=== PATIENT | female | born 1980 | race Caucasian/White ===

== ENCOUNTER 2017-01-17 17:24 | Emergency (ER) | payer MEDICAID ==
[~2017-01-17] VITALS: Ht 175.3 cm; Wt 90.9 kg
[2017-01-17 17:26] VITALS: BP 131/93; PULSE 115; TEMP 99.9
[2017-01-17] MEDS ORDERED: NEURONTIN300 MG/CAP PO (17:32)
[2017-01-17] MEDS ORDERED: PERCOCET 325 MG1 TA2 PO (18:09)
[2017-01-17] MEDS ORDERED: BACTRIM DS 8001 TAB PO (18:23)
== END 2017-01-17 18:34 | disposition home or self-care (01) ==
LOC: COL.ER 17:24
DX: K61.1 Rectal abscess (principal)

== ENCOUNTER 2017-07-09 16:58 | Emergency (ER) | payer MEDICAID ==
[~2017-07-09] VITALS: Ht 175.3 cm; Wt 99.1 kg
[~2017-07-09 16:58] MED LIST: BACTRIM DS 8001 TAB PO; NEURONTIN300 MG/CAP PO; PERCOCET 325 MG1 TA2 PO
[2017-07-09 17:05] VITALS: BP 129/77; PULSE 79; TEMP 99
== END 2017-07-09 18:42 | disposition home or self-care (01) ==
LOC: COL.ER 16:58
DX: T14.91 Suicide attempt (principal); F32.9 Major depressive disorder, single episode, unspecified; F17.210 Nicotine dependence, cigarettes, uncomplicated

== ENCOUNTER → 2017-08-15 | Outpatient (CLI) | payer MEDICAID | LOC: MC.RAD 14:00 | DX: Z12.31 Encounter for screening mammogram for malignant neoplasm of breast (principal) ==

== ENCOUNTER 2018-01-09 19:56 | Emergency (ER) | payer MEDICAID ==
[~2018-01-09] VITALS: Ht 175.3 cm; Wt 86.4 kg
[2018-01-09 20:09] VITALS: BP 135/63; TEMP 98.7
[2018-01-09 20:29] LABS: COLLECTION METHOD CLEAN CATCH
[2018-01-09 20:56] LABS: PH 7 (5-8); SQUAMOUS EPITHELIAL 0-2 /hpf; URINE APPEARANCE Clear; URINE BACTERIA None Seen /hpf; URINE BILIRUBIN Negative (NEGATIVE); URINE BLOOD Negative (NEGATIVE); URINE COLOR Yellow; URINE GLUCOSE Negative (NEGATIVE); URINE KETONE Negative (NEGATIVE); URINE LEUKOCYTE ESTERASE Negative (NEGATIVE); URINE NITRATE Negative (NEGATIVE); URINE PROTEIN(semi-quant) Negative (NEGATIVE); URINE RBC 0-2 /hpf; URINE UROBILINOGEN Negative (NEGATIVE)
[2018-01-09 21:13] LABS: BASO # 0.1 (0.0-0.2); BASO % 0.9 % (0.0-2.0); EOS # 0.3 (0.0-0.7); EOS % 4.9 % (0-4.0); GRAN # 4.1 (1.4-6.5); GRAN % 69.5 % (42.2-75.2); LYMPH # 1.1 (1.2-3.4); LYMPH % 19.3 % (20.0-51.0); MEAN CELL VOLUME 84 fl (80.0-100.0); MEAN CORPUSCULAR HGB CONC 33 g/dl (33.0-37.0); MEAN PLATELET VOLUME 8.9 fl (7.4-10.4); MONO # 0.3 (0.1-0.6); MONO % 5.1 % (1.7-9.3); PLATELET COUNT 299 K/mm3 (130-400); REDCELL DISTRIBUTION WIDTH-CV 17.2 % (11.5-14.5)
[2018-01-09 21:16] LABS: HEMATOCRIT 33.5 % (37.0-47.0); HEMOGLOBIN 10.9 g/dl (12.5-16.0); MEAN CORPUSCULAR HEMOGLOBIN 27 pg (27.0-31.0)
[2018-01-09 21:21] LABS: ALANINE AMINOTRANSFERASE 29 U/L (9-52); ALKALINE PHOSPHATASE 53 U/L (50-136); ANION GAP 6 mmol/L (7-16); AST,SGOT 25 U/L (15-37); BILIRUBIN,TOTAL < 0.1 mg/dL (0.0-1.0); BLOOD UREA NITROGEN 7 mg/dL (7-17); CALCIUM 8.9 mg/dL (8.4-10.2); CARBON DIOXIDE 24 mmol/L (22-30); CHLORIDE 107 mmol/L (98-107); CREATININE, serum 0.65 mg/dL (0.52-1.25); GLUCOSE 105 mg/dL (74-106); POTASSIUM 3.9 mmol/L (3.4-5.0); SODIUM 138 mmol/L (137-145); TOTAL PROTEIN 6.6 gm/dL (6.4-8.2)
[2018-01-09 21:22] LABS: C-REACTIVE PROTEIN < 0.5 mg/dL (0.0-0.9)
[2018-01-09 21:54] VITALS: PULSE 74
== END 2018-01-09 21:55 | disposition home or self-care (01) ==
LOC: COL.ER 19:56
PROVIDERS: Nurse Practitioner
DX: J06.9 Acute upper respiratory infection, unspecified (principal); R10.13 Epigastric pain; G43.909 Migraine, unspecified, not intractable, without status migrainosus; F41.9 Anxiety disorder, unspecified; F12.90 Cannabis use, unspecified, uncomplicated; F17.210 Nicotine dependence, cigarettes, uncomplicated; Z88.6 Allergy status to analgesic agent; Z88.8 Allergy status to other drugs, medicaments and biological substances; Z98.51 Tubal ligation status

== ENCOUNTER 2018-02-03 21:51 | Emergency (ER) | payer MEDICAID ==
[~2018-02-03] VITALS: Ht 175.3 cm; Wt 86.4 kg
[2018-02-03 21:54] VITALS: TEMP 97.8
[2018-02-03] MEDS ORDERED: CEPHALEXIN500 M1 PO (22:19)
[2018-02-03 22:30] VITALS: BP 134/75; PULSE 89
== END 2018-02-03 22:31 | disposition home or self-care (01) ==
LOC: COL.ER 21:51
DX: L02.31 Cutaneous abscess of buttock (principal); G43.909 Migraine, unspecified, not intractable, without status migrainosus; F41.9 Anxiety disorder, unspecified; F17.210 Nicotine dependence, cigarettes, uncomplicated; F12.90 Cannabis use, unspecified, uncomplicated; Z98.51 Tubal ligation status

== ENCOUNTER 2018-02-04 20:38 | Emergency (ER) | payer MEDICAID ==
[~2018-02-04] VITALS: Ht 175.3 cm; Wt 83.2 kg
[~2018-02-04 20:38] MED LIST changes: +CEPHALEXIN500 M1 PO
[2018-02-04 20:40] VITALS: BP 150/69; PULSE 80; TEMP 98.5
[2018-02-05] MEDS ORDERED: NORCO 325 MG-51 TAB PO (15:01)
== END 2018-02-04 22:15 | disposition left against medical advice (07) ==
LOC: COL.ER 20:38
DX: L72.8 Other follicular cysts of the skin and subcutaneous tissue (principal)

== ENCOUNTER 2018-02-05 14:21 | Emergency (ER) | payer MEDICAID ==
[~2018-02-05] VITALS: Ht 175.3 cm; Wt 86.4 kg
[2018-02-05 14:30] VITALS: TEMP 99.1
[2018-02-05] MEDS ORDERED: NORCO 325 MG-51 TAB PO (15:01)
[2018-02-05 15:53] VITALS: BP 121/79; PULSE 82
== END 2018-02-05 16:04 | disposition home or self-care (01) ==
LOC: COL.ER 14:21
DX: L05.01 Pilonidal cyst with abscess (principal); F17.210 Nicotine dependence, cigarettes, uncomplicated

== ENCOUNTER 2019-04-24 23:13 | Emergency (ER) | payer MEDICAID ==
[~2019-04-24] VITALS: Ht 175.3 cm; Wt 90.0 kg
[~2019-04-24 23:13] MED LIST changes: +NORCO 325 MG-51 TAB PO
[2019-04-24 23:22] VITALS: TEMP 98.2
[2019-04-24 23:54] LABS: BASO % 0.7 % (0.0-2.0); EOS # 0.3 (0.0-0.7); EOS % 5.5 % (0-4.0); GRAN # 2.9 (1.4-6.5); GRAN % 53.6 % (42.2-75.2); HEMOGLOBIN 11.2 g/dl (12.5-16.0); LYMPH # 1.9 (1.2-3.4); LYMPH % 34.7 % (20.0-51.0); MEAN CELL VOLUME 85 fl (80.0-100.0); MEAN CORPUSCULAR HEMOGLOBIN 28 pg (27.0-31.0); MEAN CORPUSCULAR HGB CONC 32 g/dl (33.0-37.0); MEAN PLATELET VOLUME 8.7 fl (7.4-10.4); MONO # 0.3 (0.1-0.6); MONO % 5.3 % (1.7-9.3); PLATELET COUNT 294 K/mm3 (130-400); RED BLOOD COUNT 4.06 M/mm3 (4.10-5.30); REDCELL DISTRIBUTION WIDTH-CV 15.8 % (11.5-14.5)
[2019-04-24 23:55] LABS: HEMATOCRIT 34.6 % (37.0-47.0)
[2019-04-25 00:03] LABS: ALANINE AMINOTRANSFERASE 9 U/L (9-52); ALBUMIN 3.5 gm/dL (3.5-5.0); ALKALINE PHOSPHATASE 56 U/L (50-136); ANION GAP 7 mmol/L (7-16); AST,SGOT 26 U/L (15-37); BILIRUBIN,TOTAL 0.1 mg/dL (0.0-1.0); BLOOD UREA NITROGEN 7 mg/dL (7-17); CALCIUM 8.6 mg/dL (8.4-10.2); CARBON DIOXIDE 26 mmol/L (22-30); CHLORIDE 107 mmol/L (98-107); CREATININE, serum 0.65 (0.52-1.25); GLUCOSE 96 mg/dL (74-106); POTASSIUM 3.8 mmol/L (3.4-5.0); SODIUM 140 mmol/L (137-145)
[2019-04-25 00:04] LABS: ACETAMINOPHEN < 10 ug/mL (10-30); ALCOHOL(ethanol),MEDICAL < 10 mg/dL; SALICYLATE < 1.0 mg/dL; TOTAL PROTEIN 6.4 gm/dL (6.4-8.2)
[2019-04-25 02:44] LABS: COLLECTION METHOD CLEAN CATCH
[2019-04-25 02:49] LABS: MUCOUS Present /lpf; PH 6 (5-8); SQUAMOUS EPITHELIAL 0-2 /hpf; URINE APPEARANCE Clear; URINE BACTERIA None Seen /hpf; URINE BILIRUBIN Negative (NEGATIVE); URINE BLOOD 1+ (NEGATIVE); URINE COLOR Yellow; URINE GLUCOSE Negative (NEGATIVE); URINE KETONE Negative (NEGATIVE); URINE LEUKOCYTE ESTERASE Negative (NEGATIVE); URINE NITRATE Negative (NEGATIVE); URINE PROTEIN(semi-quant) Negative (NEGATIVE); URINE RBC 0-2 /hpf; URINE UROBILINOGEN Negative (NEGATIVE)
[2019-04-25 03:03] LABS: TRICYCLIC ANTIDEPRESS URINE NEGATIVE
[2019-04-26 15:37] VITALS: BP 130/80; PULSE 83
== END 2019-04-26 15:44 | disposition home or self-care (01) ==
LOC: COL.ER 23:13
PROVIDERS: Emergency Medicine
DX: T42.8X2A Poisoning by antiparkinsonism drugs and other central muscle-tone depressants, intentional self-harm, initial encounter (principal); Z98.51 Tubal ligation status; F12.90 Cannabis use, unspecified, uncomplicated

== ENCOUNTER 2019-12-28 09:28 | Emergency (ER) | payer SELFPAY ==
[~2019-12-28] VITALS: Ht 175.3 cm; Wt 86.4 kg
[2019-12-28 09:31] VITALS: BP 152/70; PULSE 71; TEMP 99.5
[2019-12-28] MEDS ORDERED: PEN-VEE K500 MG PO (09:59)
[2019-12-28] MEDS ORDERED: NORCO 325 MG-51 TAB PO (09:59)
== END 2019-12-28 10:07 | disposition home or self-care (01) ==
LOC: COL.ER 09:28
DX: K04.7 Periapical abscess without sinus (principal); F41.9 Anxiety disorder, unspecified; F17.210 Nicotine dependence, cigarettes, uncomplicated; G43.909 Migraine, unspecified, not intractable, without status migrainosus; Z98.51 Tubal ligation status; Z88.5 Allergy status to narcotic agent

== ENCOUNTER 2020-06-07 16:47 | Emergency (ER) | payer SELFPAY ==
[~2020-06-07] VITALS: Ht 175.3 cm; Wt 90.7 kg
[~2020-06-07 16:47] MED LIST changes: +PEN-VEE K500 MG PO
[2020-06-07 16:50] VITALS: TEMP 97.7
[2020-06-07 17:02] LABS: COLLECTION METHOD CLEAN CATCH
[2020-06-07 17:08] LABS: PH 5 (5-8); SQUAMOUS EPITHELIAL 0-2 /hpf; URINE APPEARANCE Clear; URINE BACTERIA None Seen /hpf; URINE BILIRUBIN Negative (NEGATIVE); URINE BLOOD Negative (NEGATIVE); URINE COLOR Straw; URINE GLUCOSE Negative (NEGATIVE); URINE KETONE Negative (NEGATIVE); URINE LEUKOCYTE ESTERASE Negative (NEGATIVE); URINE NITRATE Negative (NEGATIVE); URINE PROTEIN(semi-quant) Negative (NEGATIVE); URINE RBC 0-2 /hpf; URINE UROBILINOGEN Negative (NEGATIVE)
[2020-06-07 17:25] LABS: TRICYCLIC ANTIDEPRESS URINE NEGATIVE
[2020-06-07 18:46] LABS: BASO # 0.1 (0.0-0.2); BASO % 0.8 % (0.0-2.0); EOS # 0.1 (0.0-0.7); GRAN # 4.5 (1.4-6.5); GRAN % 69.4 % (42.2-75.2); HEMATOCRIT 37.4 % (37.0-47.0); HEMOGLOBIN 11.6 g/dl (12.5-16.0); LYMPH # 1.3 (1.2-3.4); LYMPH % 20.1 % (20.0-51.0); MEAN CELL VOLUME 79 fl (80.0-100.0); MEAN CORPUSCULAR HEMOGLOBIN 25 pg (27.0-31.0); MEAN CORPUSCULAR HGB CONC 31 g/dl (33.0-37.0); MEAN PLATELET VOLUME 8.8 fl (7.4-10.4); MONO # 0.5 (0.1-0.6); MONO % 7.4 % (1.7-9.3); PLATELET COUNT 382 K/mm3 (130-400); RED BLOOD COUNT 4.73 M/mm3 (4.10-5.30); REDCELL DISTRIBUTION WIDTH-CV 18.7 % (11.5-14.5)
[2020-06-07 19:03] LABS: ALANINE AMINOTRANSFERASE 12 U/L (4-34); ALBUMIN 4.5 gm/dL (3.5-5.0); ALCOHOL(ethanol),MEDICAL 139 mg/dL; ALKALINE PHOSPHATASE 75 U/L (50-136); ANION GAP 8 mmol/L (7-16); AST,SGOT 23 U/L (15-37); BILIRUBIN,TOTAL 0.4 mg/dL (0.0-1.0); BLOOD UREA NITROGEN 4 mg/dL (7-17); CALCIUM 9.3 mg/dL (8.4-10.2); CARBON DIOXIDE 26 mmol/L (22-30); CHLORIDE 107 mmol/L (98-107); CREATININE, serum 0.73 (0.52-1.25); GLUCOSE 94 mg/dL (74-106); POTASSIUM 4.1 mmol/L (3.4-5.0); SODIUM 141 mmol/L (137-145); TOTAL PROTEIN 7.7 gm/dL (6.4-8.2)
[2020-06-07 19:04] LABS: ACETAMINOPHEN < 10 ug/mL (10-30); SALICYLATE < 1.0 mg/dL
[2020-06-07 22:39] VITALS: BP 112/81; PULSE 77
== END 2020-06-07 22:52 | disposition home or self-care (01) ==
LOC: COL.ER 16:47
PROVIDERS: Physician Assistant
DX: S61.511A Laceration without foreign body of right wrist, initial encounter (principal); F41.9 Anxiety disorder, unspecified; F32.9 Major depressive disorder, single episode, unspecified; G43.909 Migraine, unspecified, not intractable, without status migrainosus; F17.210 Nicotine dependence, cigarettes, uncomplicated; Z23 Encounter for immunization; Z91.14 Patient's other noncompliance with medication regimen; Z91.5 Personal history of self-harm; Z88.6 Allergy status to analgesic agent; X78.1XXA Intentional self-harm by knife, initial encounter

== ENCOUNTER 2020-10-25 17:33 | Emergency (ER) | payer SELFPAY ==
[~2020-10-25] VITALS: Ht 175.3 cm; Wt 93.2 kg
[~2020-10-25 17:33] MED LIST changes: +AMOXICILLIN 8751 TAB PO; +LIDODERM 5% PATC1 EA TP; +MEDROL 4MG DOSPA4 MG PO; +NEURONTIN100 MG/CAP PO
[2020-10-25 17:50] VITALS: BP 129/79; TEMP 98.2
[2020-10-25 18:23] VITALS: PULSE 85
== END 2020-10-25 18:23 | disposition home or self-care (01) ==
LOC: COL.ER 17:33
DX: S00.93XA Contusion of unspecified part of head, initial encounter (principal); Z88.5 Allergy status to narcotic agent; Z88.6 Allergy status to analgesic agent; W22.8XXA Striking against or struck by other objects, initial encounter; Y92.002 Bathroom of unspecified non-institutional (private) residence as the place of occurrence of the external cause

== ENCOUNTER 2020-10-29 20:52 | Emergency (ER) | payer SELFPAY ==
[~2020-10-29] VITALS: Ht 175.3 cm; Wt 93.2 kg
[2020-10-29 20:56] VITALS: BP 126/73; TEMP 97.9
[2020-10-29] MEDS ORDERED: CLEOCIN HCL300 MG PO (21:19)
[2020-10-29 21:26] VITALS: PULSE 80
== END 2020-10-29 21:29 | disposition home or self-care (01) ==
LOC: COL.ER 20:52
DX: K08.89 Other specified disorders of teeth and supporting structures (principal); Z88.5 Allergy status to narcotic agent; Z88.6 Allergy status to analgesic agent

== ENCOUNTER 2020-11-04 10:13 | Emergency (ER) | payer SELFPAY ==
[~2020-11-04 10:13] MED LIST changes: +CLEOCIN HCL300 MG PO
== END 2020-11-04 11:09 | disposition left against medical advice (07) ==
LOC: COL.ER 10:13
DX: R69 Illness, unspecified (principal); Z53.29 Procedure and treatment not carried out because of patient's decision for other reasons

== ENCOUNTER 2020-12-28 21:43 | Emergency (ER) | payer SELFPAY ==
[~2020-12-28] VITALS: Ht 175.3 cm; Wt 95.5 kg
[2020-12-30 13:05] LABS: ACETAMINOPHEN < 10 ug/mL (10-30); ALANINE AMINOTRANSFERASE 23 U/L (4-34); ALBUMIN 3.9 gm/dL (3.5-5.0); ALCOHOL(ethanol),MEDICAL < 10 mg/dL; ALKALINE PHOSPHATASE 69 U/L (50-136); ANION GAP 8 mmol/L (7-16); AST,SGOT 40 U/L (15-37); BILIRUBIN,TOTAL 0.3 mg/dL (0.0-1.0); BLOOD UREA NITROGEN 8 mg/dL (7-17); CALCIUM 8.6 mg/dL (8.4-10.2); CARBON DIOXIDE 22 mmol/L (22-30); CHLORIDE 107 mmol/L (98-107); CREATININE, serum 1.12 (0.52-1.25); GLUCOSE 90 mg/dL (74-106); POTASSIUM 4.7 mmol/L (3.4-5.0); SALICYLATE < 1.0 mg/dL; SODIUM 137 mmol/L (137-145); TOTAL PROTEIN 6.5 gm/dL (6.4-8.2)
[2020-12-30 16:28] LABS: BASO # 0.1 (0.0-0.2); BASO % 0.5 % (0.0-2.0); EOS % 0.1 % (0-4.0); GRAN # 14.8 (1.4-6.5); HEMATOCRIT 37.4 % (37.0-47.0); HEMOGLOBIN 11.9 g/dl (12.5-16.0); LYMPH % 6.1 % (20.0-51.0); MEAN CELL VOLUME 80 fl (80.0-100.0); MEAN CORPUSCULAR HEMOGLOBIN 26 pg (27.0-31.0); MEAN CORPUSCULAR HGB CONC 32 g/dl (33.0-37.0); MONO # 0.8 (0.1-0.6); MONO % 4.8 % (1.7-9.3); PLATELET COUNT 409 K/mm3 (130-400); RED BLOOD COUNT 4.66 M/mm3 (4.10-5.30); REDCELL DISTRIBUTION WIDTH-CV 19.1 % (11.5-14.5)
[2020-12-31 18:43] VITALS: BP 140/122; PULSE 110; TEMP 97.2
== END 2020-12-29 02:03 | disposition home or self-care (01) ==
LOC: COL.ER 21:43
PROVIDERS: Emergency Medicine
DX: T40.2X2A Poisoning by other opioids, intentional self-harm, initial encounter (principal); F10.10 Alcohol abuse, uncomplicated; Z88.6 Allergy status to analgesic agent

== ENCOUNTER 2021-01-26 22:50 | Emergency (ER) | payer SELFPAY ==
[~2021-01-26] VITALS: Ht 175.3 cm; Wt 100.0 kg
[2021-01-26] MEDS ORDERED: ADVIL200 MG PO (23:29)
[2021-01-26] MEDS ORDERED: TYLENOL 325MG325 MG PO (23:29)
[2021-01-27] MEDS ORDERED: FLEXERIL 1010 MG/TAB PO (00:15)
[2021-01-27 00:31] VITALS: BP 157/75; PULSE 79; TEMP 97.4
[2021-01-28] MEDS ORDERED: PRINIVIL10 MG PO (15:19)
== END 2021-01-27 00:31 | disposition home or self-care (01) ==
LOC: COL.ER 22:50
DX: M62.830 Muscle spasm of back (principal); G89.29 Other chronic pain; F17.210 Nicotine dependence, cigarettes, uncomplicated; Z88.6 Allergy status to analgesic agent
CPT/HCPCS: J3360

== ENCOUNTER 2021-01-28 13:24 | Emergency (ER) | payer SELFPAY ==
[~2021-01-28] VITALS: Ht 175.3 cm; Wt 95.5 kg
[~2021-01-28 13:24] MED LIST changes: +ADVIL200 MG PO; +FLEXERIL 1010 MG/TAB PO; +TYLENOL 325MG325 MG PO
[2021-01-28 13:39] VITALS: TEMP 98.1
[2021-01-28 14:09] LABS: COLLECTION METHOD CLEAN CATCH
[2021-01-28 14:11] LABS: BASO % 0.5 % (0.0-2.0); EOS # 0.1 (0.0-0.7); EOS % 1.3 % (0-4.0); GRAN # 4.4 (1.4-6.5); GRAN % 68.9 % (42.2-75.2); HEMATOCRIT 38.2 % (37.0-47.0); HEMOGLOBIN 12.1 g/dl (12.5-16.0); LYMPH # 1.4 (1.2-3.4); LYMPH % 21.4 % (20.0-51.0); MEAN CELL VOLUME 79 fl (80.0-100.0); MEAN CORPUSCULAR HEMOGLOBIN 25 pg (27.0-31.0); MEAN CORPUSCULAR HGB CONC 32 g/dl (33.0-37.0); MEAN PLATELET VOLUME 8.5 fl (7.4-10.4); MONO # 0.5 (0.1-0.6); MONO % 7.9 % (1.7-9.3); PLATELET COUNT 545 K/mm3 (130-400); RED BLOOD COUNT 4.83 M/mm3 (4.10-5.30); REDCELL DISTRIBUTION WIDTH-CV 19.2 % (11.5-14.5)
[2021-01-28 14:14] LABS: PH 6 (5-8); SQUAMOUS EPITHELIAL None Seen /hpf; URINE APPEARANCE Clear; URINE BACTERIA None Seen /hpf; URINE BILIRUBIN Negative (NEGATIVE); URINE BLOOD 3+ (NEGATIVE); URINE COLOR Colorless; URINE GLUCOSE Negative (NEGATIVE); URINE KETONE Negative (NEGATIVE); URINE LEUKOCYTE ESTERASE Negative (NEGATIVE); URINE NITRATE Negative (NEGATIVE); URINE PROTEIN(semi-quant) Negative (NEGATIVE); URINE RBC 0-2 /hpf; URINE UROBILINOGEN Negative (NEGATIVE)
[2021-01-28 14:21] LABS: ALANINE AMINOTRANSFERASE 17 U/L (4-34); ALBUMIN 4.8 gm/dL (3.5-5.0); ALKALINE PHOSPHATASE 92 U/L (50-136); ANION GAP 11 mmol/L (7-16); AST,SGOT 26 U/L (15-37); BILIRUBIN,TOTAL 0.3 mg/dL (0.0-1.0); BLOOD UREA NITROGEN 6 mg/dL (7-17); CALCIUM 9.7 mg/dL (8.4-10.2); CARBON DIOXIDE 21 mmol/L (22-30); CHLORIDE 104 mmol/L (98-107); CREATININE, serum 0.82 (0.52-1.25); GLUCOSE 102 mg/dL (74-106); LIPASE 179 U/L (23-300); SODIUM 136 mmol/L (137-145); TOTAL PROTEIN 8.5 gm/dL (6.4-8.2)
[2021-01-28 14:29] LABS: TRICYCLIC ANTIDEPRESS URINE NEGATIVE
[2021-01-28 14:33] LABS: C-REACTIVE PROTEIN < 0.5 mg/dL (0.0-0.9)
[2021-01-28 14:34] LABS: POTASSIUM 2.9 mmol/L (3.4-5.0)
[2021-01-28] MEDS ORDERED: PRINIVIL10 MG PO (15:19)
[2021-01-28 15:32] VITALS: BP 153/99; PULSE 83
== END 2021-01-28 15:32 | disposition home or self-care (01) ==
LOC: COL.ER 13:24
PROVIDERS: Family Medicine
DX: R10.13 Epigastric pain (principal); I10 Essential (primary) hypertension; E87.6 Hypokalemia; F17.210 Nicotine dependence, cigarettes, uncomplicated; Z88.6 Allergy status to analgesic agent
CPT/HCPCS: J2060; J2405; J7120

== ENCOUNTER 2021-03-16 15:32 | Emergency (ER) | payer SELFPAY ==
[~2021-03-16] VITALS: Ht 175.3 cm; Wt 95.5 kg
[~2021-03-16 15:32] MED LIST changes: +PRINIVIL10 MG PO
[2021-03-16 15:38] VITALS: TEMP 97.9
[2021-03-16] MEDS ORDERED: CLEOCIN HCL300 MG PO (16:34)
[2021-03-16 16:48] VITALS: BP 148/91; PULSE 73
== END 2021-03-16 16:49 | disposition home or self-care (01) ==
LOC: COL.ER 15:32
DX: Z71.6 Tobacco abuse counseling (principal); K08.89 Other specified disorders of teeth and supporting structures; F17.210 Nicotine dependence, cigarettes, uncomplicated; Z88.6 Allergy status to analgesic agent

== ENCOUNTER 2021-03-27 22:30 | Emergency (ER) | payer SELFPAY ==
[~2021-03-27] VITALS: Ht 175.3 cm; Wt 100.0 kg
[2021-03-27 23:17] LABS: BASO # 0.1 (0.0-0.2); BASO % 0.7 % (0.0-2.0); EOS # 0.1 (0.0-0.7); EOS % 1.3 % (0-4.0); GRAN % 56.8 % (42.2-75.2); HEMATOCRIT 37.2 % (37.0-47.0); LYMPH # 2.3 (1.2-3.4); LYMPH % 33.1 % (20.0-51.0); MEAN CELL VOLUME 84 fl (80.0-100.0); MEAN CORPUSCULAR HEMOGLOBIN 27 pg (27.0-31.0); MEAN CORPUSCULAR HGB CONC 32 g/dl (33.0-37.0); MEAN PLATELET VOLUME 8.9 fl (7.4-10.4); MONO # 0.6 (0.1-0.6); MONO % 7.8 % (1.7-9.3); PLATELET COUNT 445 K/mm3 (130-400); RED BLOOD COUNT 4.44 M/mm3 (4.10-5.30)
[2021-03-27 23:35] LABS: ALANINE AMINOTRANSFERASE 15 U/L (4-34); ALBUMIN 4.2 gm/dL (3.5-5.0); ALKALINE PHOSPHATASE 64 U/L (50-136); ANION GAP 8 mmol/L (7-16); AST,SGOT 27 U/L (15-37); BILIRUBIN,TOTAL 0.3 mg/dL (0.0-1.0); BLOOD UREA NITROGEN 11 mg/dL (7-17); CALCIUM 9.1 mg/dL (8.4-10.2); CARBON DIOXIDE 23 mmol/L (22-30); CHLORIDE 106 mmol/L (98-107); CREATININE, serum 0.78 (0.52-1.25); GLUCOSE 110 mg/dL (74-106); LIPASE 101 U/L (23-300); POTASSIUM 3.2 mmol/L (3.4-5.0); SODIUM 137 mmol/L (137-145); TOTAL PROTEIN 7.1 gm/dL (6.4-8.2)
[2021-03-27 23:36] LABS: C-REACTIVE PROTEIN < 0.5 mg/dL (0.0-0.9)
[2021-03-27 23:45] LABS: TROPONIN-I < 0.012 ng/mL (0.000-0.035)
[2021-03-28 00:17] LABS: COLLECTION METHOD CLEAN CATCH
[2021-03-28] MEDS ORDERED: AMOXICILLIN 8751 TAB PO (00:21)
[2021-03-28 00:23] LABS: PH 5 (5-8); SQUAMOUS EPITHELIAL 0-2 /hpf; URINE APPEARANCE Clear; URINE BACTERIA None Seen /hpf; URINE BILIRUBIN Negative (NEGATIVE); URINE BLOOD Negative (NEGATIVE); URINE COLOR Straw; URINE GLUCOSE Negative (NEGATIVE); URINE KETONE Negative (NEGATIVE); URINE LEUKOCYTE ESTERASE Negative (NEGATIVE); URINE NITRATE Negative (NEGATIVE); URINE PROTEIN(semi-quant) Negative (NEGATIVE); URINE RBC 0-2 /hpf; URINE UROBILINOGEN Negative (NEGATIVE)
[2021-03-28 00:55] VITALS: BP 119/66; PULSE 75; TEMP 98.7
== END 2021-03-28 00:50 | disposition home or self-care (01) ==
LOC: COL.ER 22:30
PROVIDERS: Emergency Medicine
DX: F41.9 Anxiety disorder, unspecified (principal); R07.89 Other chest pain; E87.6 Hypokalemia; R20.2 Paresthesia of skin; T36.8X5A Adverse effect of other systemic antibiotics, initial encounter; F17.210 Nicotine dependence, cigarettes, uncomplicated; Z82.49 Family history of ischemic heart disease and other diseases of the circulatory system; Z88.6 Allergy status to analgesic agent
CPT/HCPCS: J2060

== ENCOUNTER 2021-04-04 19:47 | Emergency (ER) | payer SELFPAY ==
[~2021-04-04] VITALS: Ht 175.3 cm; Wt 97.7 kg
[2021-04-04 19:58] VITALS: TEMP 98
[2021-04-04 20:54] LABS: BASO # 0.1 (0.0-0.2); BASO % 0.5 % (0.0-2.0); EOS # 0.1 (0.0-0.7); EOS % 0.6 % (0-4.0); GRAN # 8.1 (1.4-6.5); LYMPH # 2.4 (1.2-3.4); LYMPH % 20.5 % (20.0-51.0); MEAN CELL VOLUME 85 fl (80.0-100.0); MEAN CORPUSCULAR HEMOGLOBIN 28 pg (27.0-31.0); MEAN CORPUSCULAR HGB CONC 33 g/dl (33.0-37.0); MEAN PLATELET VOLUME 8.9 fl (7.4-10.4); MONO # 0.8 (0.1-0.6); MONO % 7.1 % (1.7-9.3); PLATELET COUNT 425 K/mm3 (130-400); REDCELL DISTRIBUTION WIDTH-CV 17.2 % (11.5-14.5)
[2021-04-04 20:54] LABS: COLLECTION METHOD CLEAN CATCH
[2021-04-04 21:01] LABS: PH 5 (5-8); SQUAMOUS EPITHELIAL 0-2 /hpf; URINE APPEARANCE Clear; URINE BACTERIA Rare /hpf; URINE BILIRUBIN Negative (NEGATIVE); URINE BLOOD Negative (NEGATIVE); URINE COLOR Yellow; URINE GLUCOSE Negative (NEGATIVE); URINE KETONE Negative (NEGATIVE); URINE LEUKOCYTE ESTERASE Negative (NEGATIVE); URINE NITRATE Negative (NEGATIVE); URINE PROTEIN(semi-quant) Negative (NEGATIVE); URINE RBC 0-2 /hpf; URINE UROBILINOGEN Negative (NEGATIVE)
[2021-04-04 21:03] LABS: ALBUMIN 4.3 gm/dL (3.5-5.0); BILIRUBIN,TOTAL 0.4 mg/dL (0.0-1.0); CALCIUM 9.8 mg/dL (8.4-10.2); CREATININE, serum 0.77 (0.52-1.25); MAGNESIUM 1.5 mg/dL (1.6-2.3); POTASSIUM 3.1 mmol/L (3.4-5.0)
[2021-04-04 22:25] VITALS: BP 131/70
[2021-04-04] MEDS ORDERED: BENTYL 10MG10 MG/CAP PO (23:03)
[2021-04-05 00:04] VITALS: PULSE 65
== END 2021-04-05 00:04 | disposition home or self-care (01) ==
LOC: COL.ER 19:47
PROVIDERS: Emergency Medicine
DX: R10.9 Unspecified abdominal pain (principal); E87.6 Hypokalemia; E83.42 Hypomagnesemia; D72.829 Elevated white blood cell count, unspecified; F17.210 Nicotine dependence, cigarettes, uncomplicated
CPT/HCPCS: J2060; J3475; Q9967

== ENCOUNTER 2021-09-01 23:40 | Emergency (ER) | payer SELFPAY ==
[~2021-09-01] VITALS: Ht 175.3 cm; Wt 100.0 kg
[~2021-09-01 23:40] MED LIST changes: +BENTYL 10MG10 MG/CAP PO
[2021-09-02 00:50] LABS: BASO # 0.1 K/mm3 (0.0-0.2); BASO % 0.9 % (0.0-2.0); EOS # 0.3 K/mm3 (0.0-0.7); EOS % 2.7 % (0-4.0); GRAN # 6.9 K/mm3 (1.4-6.5); GRAN % 70.3 % (42.2-75.2); HEMOGLOBIN 12.1 g/dl (12.5-16.0); LYMPH # 1.8 K/mm3 (1.2-3.4); LYMPH % 18.5 % (20.0-51.0); MEAN CELL VOLUME 83 fl (80.0-100.0); MEAN CORPUSCULAR HEMOGLOBIN 27 pg (27.0-31.0); MEAN CORPUSCULAR HGB CONC 33 g/dl (33.0-37.0); MEAN PLATELET VOLUME 8.6 fl (7.4-10.4); MONO # 0.7 K/mm3 (0.1-0.6); MONO % 7.4 % (1.7-9.3); PLATELET COUNT 433 K/mm3 (130-400); RED BLOOD COUNT 4.42 M/mm3 (4.10-5.30); REDCELL DISTRIBUTION WIDTH-CV 14.4 % (11.5-14.5)
[2021-09-02 01:03] LABS: COLLECTION METHOD CLEAN CATCH
[2021-09-02 01:05] LABS: HEMATOCRIT 36.5 % (37.0-47.0)
[2021-09-02 01:09] LABS: PH 5 (5-8); SQUAMOUS EPITHELIAL None Seen /hpf; URINE APPEARANCE Clear; URINE BACTERIA None Seen /hpf; URINE BILIRUBIN Negative (NEGATIVE); URINE BLOOD 2+ (NEGATIVE); URINE COLOR Straw; URINE GLUCOSE Negative (NEGATIVE); URINE KETONE Negative (NEGATIVE); URINE LEUKOCYTE ESTERASE Negative (NEGATIVE); URINE NITRATE Negative (NEGATIVE); URINE PROTEIN(semi-quant) Negative (NEGATIVE); URINE RBC None Seen /hpf; URINE UROBILINOGEN Negative (NEGATIVE)
[2021-09-02 01:15] LABS: ALANINE AMINOTRANSFERASE 15 U/L (0-55); ALBUMIN 4.1 gm/dL (3.5-5.0); ALKALINE PHOSPHATASE 66 U/L (40-150); ANION GAP 13 mmol/L (7-16); AST,SGOT 17 U/L (5-34); BILIRUBIN,TOTAL 0.3 mg/dL (0.2-1.2); BLOOD UREA NITROGEN 9 mg/dL (7-19); C-REACTIVE PROTEIN 0.14 mg/dL (0.00-0.50); CALCIUM 10.2 mg/dL (8.4-10.2); CARBON DIOXIDE 22 mmol/L (22-29); CHLORIDE 106 mmol/L (98-107); CREATININE, serum 0.94 mg/dL (0.57-1.11); GLUCOSE 99 mg/dL (70-99); LIPASE 22 U/L (8-78); POTASSIUM 3.6 mmol/L (3.5-4.5); SODIUM 141 mmol/L (136-145); TOTAL PROTEIN 7.5 gm/dL (6.2-8.1)
[2021-09-02 01:21] LABS: TROPONIN-I < 0.010 ng/mL (0.00-0.033)
[2021-09-02 02:03] VITALS: BP 145/90; PULSE 85; TEMP 98.6
== END 2021-09-02 02:03 | disposition home or self-care (01) ==
LOC: COL.ER 23:40
PROVIDERS: Nurse Practitioner Primary Care
DX: R10.13 Epigastric pain (principal); R07.2 Precordial pain; F17.210 Nicotine dependence, cigarettes, uncomplicated

== ENCOUNTER 2021-12-29 16:44 | Emergency (ER) | payer SELFPAY ==
[~2021-12-29] VITALS: Ht 175.3 cm; Wt 104.5 kg
[2021-12-29 18:17] LABS: COLLECTION METHOD CLEAN CATCH
[2021-12-29 18:25] LABS: PH 5 (5-8); SQUAMOUS EPITHELIAL 0-2 /hpf (0-10); URINE APPEARANCE Clear (CLEAR/HAZY); URINE BACTERIA None Seen /hpf (NONE SEEN); URINE BILIRUBIN Negative (NEGATIVE); URINE BLOOD Negative (NEGATIVE); URINE COLOR Colorless (YELLOW); URINE GLUCOSE Negative (NEGATIVE); URINE KETONE Negative (NEGATIVE); URINE LEUKOCYTE ESTERASE Negative (NEGATIVE); URINE NITRATE Negative (NEGATIVE); URINE PROTEIN(semi-quant) Negative (NEGATIVE); URINE RBC 0-2 /hpf (0-2); URINE UROBILINOGEN Negative (NEGATIVE)
[2021-12-29 19:53] LABS: BASO # 0.1 K/mm3 (0.0-0.2); BASO % 0.7 % (0.0-2.0); EOS # 0.2 K/mm3 (0.0-0.7); EOS % 1.8 % (0.0-4.0); GRAN # 7.1 K/mm3 (1.4-6.5); GRAN % 73.4 % (42.2-75.2); LYMPH # 1.7 K/mm3 (1.2-3.4); LYMPH % 17.8 % (20.0-51.0); MEAN CELL VOLUME 79 fl (80.0-100.0); MEAN CORPUSCULAR HEMOGLOBIN 25 pg (27-31); MEAN CORPUSCULAR HGB CONC 32 g/dl (33.0-37.0); MEAN PLATELET VOLUME 9.1 fl (7.4-10.4); MONO # 0.6 K/mm3 (0.1-0.6); PLATELET COUNT 355 K/mm3 (130-400); RED BLOOD COUNT 4.42 M/mm3 (4.10-5.30)
[2021-12-29 19:55] LABS: HEMATOCRIT 34.9 % (37.0-47.0)
[2021-12-29 20:12] LABS: ALBUMIN 3.8 gm/dL (3.5-5.0); BILIRUBIN,TOTAL 0.1 mg/dL (0.2-1.2); C-REACTIVE PROTEIN 0.11 mg/dL (0.00-0.50); CALCIUM 9.2 mg/dL (8.4-10.2); CREATININE, serum 1.01 mg/dL (0.57-1.11); POTASSIUM 4.1 mmol/L (3.5-4.5); TOTAL PROTEIN 6.9 gm/dL (6.2-8.1)
[2021-12-29] MEDS ORDERED: FLAGYL500 MG PO (20:46)
[2021-12-29 20:59] VITALS: BP 148/79; PULSE 84; TEMP 98.7
== END 2021-12-29 20:59 | disposition home or self-care (01) ==
LOC: COL.ER 16:44
PROVIDERS: Nurse Practitioner
DX: N76.0 Acute vaginitis (principal); Z98.51 Tubal ligation status; Z32.02 Encounter for pregnancy test, result negative

== ENCOUNTER 2023-11-06 16:40 | Emergency (ER) | payer SELFPAY ==
[~2023-11-06] VITALS: Ht 175.3 cm; Wt 90.9 kg
[~2023-11-06 16:40] MED LIST changes: +FLAGYL500 MG PO
[2023-11-06 16:44] VITALS: TEMP 97.5
[2023-11-06 17:24] LABS: BASO # 0.1 K/mm3 (0.0-0.2); BASO % 0.9 % (0.0-2.0); EOS # 0.1 K/mm3 (0.0-0.7); EOS % 1.3 % (0.0-4.0); GRAN # 4.6 K/mm3 (1.4-6.5); GRAN % 62.3 % (42.2-75.2); HEMOGLOBIN 11.1 g/dl (12.5-16.0); LYMPH # 1.9 K/mm3 (1.2-3.4); LYMPH % 25.8 % (20.0-51.0); MEAN CELL VOLUME 80 fl (80.0-100.0); MEAN CORPUSCULAR HEMOGLOBIN 24 pg (27-31); MEAN CORPUSCULAR HGB CONC 31 g/dl (33.0-37.0); MEAN PLATELET VOLUME 8.6 fl (7.4-10.4); MONO # 0.7 K/mm3 (0.1-0.6); MONO % 8.9 % (1.7-9.3); PLATELET COUNT 396 K/mm3 (130-400); RED BLOOD COUNT 4.54 M/mm3 (4.10-5.30); REDCELL DISTRIBUTION WIDTH-CV 16.8 % (11.5-14.5)
[2023-11-06 17:25] LABS: HEMATOCRIT 36.2 % (37.0-47.0)
[2023-11-06 17:39] LABS: ALBUMIN 3.7 gm/dL (3.5-5.0); BILIRUBIN,TOTAL 0.3 mg/dL (0.2-1.2); C-REACTIVE PROTEIN 0.07 mg/dL (0.00-0.50); CALCIUM 9.3 mg/dL (8.4-10.2); CREATININE, serum 0.86 mg/dL (0.57-1.11); POTASSIUM 3.4 mmol/L (3.5-4.5); TOTAL PROTEIN 7.2 gm/dL (6.2-8.1)
[2023-11-06 18:33] LABS: COLLECTION METHOD CLEAN CATCH
[2023-11-06 18:44] LABS: PH 6.5 (5.0-8.5); URINE APPEARANCE Hazy (CLEAR/HAZY); URINE COLOR Yellow (YELLOW); URINE GLUCOSE Negative (NEGATIVE); URINE PROTEIN(semi-quant) Negative (NEGATIVE)
[2023-11-06 18:45] LABS: URINE BACTERIA Occasional /hpf (NONE SEEN); URINE BLOOD Negative (NEGATIVE); URINE KETONE Negative (NEGATIVE); URINE NITRATE Negative (NEGATIVE); URINE RBC 0-2 /hpf (0-2); URINE UROBILINOGEN 0.2 E.U/dL (0.2-1.0)
[2023-11-06] MEDS ORDERED: ZOFRAN ODT4 MG PO (18:46)
[2023-11-06] MEDS ORDERED: NORCO 325 MG-51 TAB PO (18:46)
[2023-11-06 18:58] VITALS: BP 118/61; PULSE 80
== END 2023-11-06 18:58 | disposition home or self-care (01) ==
LOC: COL.ER 16:40
PROVIDERS: Family Medicine
DX: R10.10 Upper abdominal pain, unspecified (principal); R11.0 Nausea
CPT/HCPCS: J1790; J2270; J2405; J7120; Q9967

== ENCOUNTER 2023-11-13 15:19 | Emergency (ER) | payer OTHER ==
[~2023-11-13] VITALS: Ht 175.3 cm; Wt 90.9 kg
[~2023-11-13 15:19] MED LIST changes: +ZOFRAN ODT4 MG PO
[2023-11-13 15:38] VITALS: BP 176/74; TEMP 99
[2023-11-13 16:37] VITALS: PULSE 68
== END 2023-11-13 16:38 | disposition home or self-care (01) ==
LOC: COL.ER 15:19
DX: S63.602A Unspecified sprain of left thumb, initial encounter (principal); W01.10XA Fall on same level from slipping, tripping and stumbling with subsequent striking against unspecified object, initial encounter